=== PATIENT | male | born 1985 | race American Indian/Alaskan Native ===

== ENCOUNTER 2016-12-27 15:57 | Emergency (ER) | payer SELFPAY ==
[2016-12-27 16:48] VITALS: BP 128/80
--- NOTE | 2016-12-27 19:36 | Emergency Department Report ---
HPI - General Chief Complaint: Dental/Oral Time Seen by Provider: 12/27/16 19:03 - HPI HPI: Patient here complaining in of frequent muscle them to abdomen and fingers and back times one day. Patient also complaining of left ankle pain and left lower toothache. Denies any shortness of breath. Denies any cough. Denies any fever or chills. Denies any injury. Denies any chest pain. He states that he has no medical problems. He said this has been [place] then on and off. Patient does not have a primary care physician nor does he have a dentist. He said that the muscle spasm to his abdomen and back comes and goes and is not having it at present. Pain to tooth on the left side is 8 out of 10 and a can. No [id number] medication taken.. Denies any urinary frequency urgency or burning. Denies any loss of bowel or bladder function. Eyes any headache or dizziness. Denies any numbness or tingling to extremities. ED Past Medical Hx - Past Medical History Previous Medical History?: No - Surgical History Past Surgical History?: No - Family History Family history: no significant - Social History Smoking Status: Current Every Day Smoker Substance Use Type: None, Marijuana Other Social History: Patient is single - Medications Home Medications: Home Medications Medication Instructions Recorded Confirmed Last Taken Type Acetaminophen/Codeine [Tylenol 1 tab PO Q6H PRN #12 tab 12/27/16 Unknown Rx /Codeine # 3 tab] Amoxicillin [Amoxicillin TAB] 875 mg PO BID #20 tablet 12/27/16 Unknown Rx Cyclobenzaprine [Flexeril] 10 mg PO TID PRN #15 tablet 12/27/16 Unknown Rx ED Review of Systems ROS: Stated complaint: TOOTHACHE/MUSCLE SPASMS Other details as noted in HPI Comment: All other systems reviewed and negative Constitutional: denies: chills, fever Eyes: denies: eye discharge ENT: dental pain. denies: ear pain, throat pain, congestion Respiratory: no symptoms reported Cardiovascular: denies: chest pain, palpitations, edema, syncope Gastrointestinal: other (abdominal spasms). denies: nausea, vomiting, diarrhea , constipation, hematemesis, melena, hematochezia Genitourinary: denies: urgency, dysuria, frequency, hematuria, discharge, testicular pain, testicular mass Musculoskeletal: back pain (back spasm), arthralgia (rest ankle pain on and off) . denies: myalgia Skin: denies: rash Neurological: denies: headache, weakness, abnormal gait, vertigo Physical Exam - Physical Exam Vital Signs: Vital Signs 12/27/16 16:39 Temperature 97.8 F Pulse Rate 107 H Blood Pressure 128/80 O2 Sat by Pulse 98 Oximetry Vital Signs 12/27/16 12/27/16 16:39 19:38 Temperature 97.8 F Pulse Rate 107 H 82 Respiratory 18 Rate Blood Pressure 128/80 O2 Sat by Pulse 98 Oximetry General: This is a 31-year-old male well-nourished well-developed in no acute distress Physical Exam: Head: Normocephalic, atraumatic. No abrasions, laceration or contusion Neck: Supple, No cervical adenopathy. Full range of motion. No C-spine tenderness. No muscular tenderness Eyes: Loi sclera nonicteric, no conjunctival injection, bilateral pupils equal and reactive to light. Bilateral EOM intact. Ears: Bilateral TMs pearly underwood, bilaterally EAC without any redness swelling or drainage. Nose: Loi nasal mucosa without any erythema or congestion. No drainage. Mouth: Moist,No pharyngeal exudate and erythema. Uvula is midline and oral airways patent. Tongue normal. Positive gingival inflammation, multiple dental caries, positive tenderness around tooth #17 and 18. No erythema noted. No facial swelling. CV:S1, S2 regular rate and rhythm. Lungs: Clear to auscultate to lung kim. Normal work of breathing. Abdomen: Soft, normal bowel sounds in all quadrants. No rigidity or distention. Back: Normal inspection, full range of motion. No paraspinal or vertebral tenderness. Patient able to ambulate without any difficulties. No muscle spasm. Neurological: GCS at 15, alert and oriented 3. Speech is clear and fluid, no facial drooping. Gait is normal. Negative Romberg and negative pronator drift. No motor or sensory deficit. MSK: Full range of motion to all extremities, no joint deformity. No crepitus or erythema. No joint effusion. 5/5 movement in all extremities Extremity: No clubbing, cyanosis or edema. +2 pulses in all extremities. No neurovascular compromise. Capillary refill is less than 3 seconds. Skin: Clean dry and intact, no rash or lesions. PSYCH: Normal mood and behavior ED Course Vital Signs 08/12/17 16:39 Temperature 97.8 F Pulse Rate 107 H Blood Pressure 128/80 O2 Sat by Pulse 98 Oximetry Vital Signs 12/27/16 12/27/16 16:39 19:38 Temperature 97.8 F Pulse Rate 107 H 82 Respiratory 18 Rate Blood Pressure 128/80 O2 Sat by Pulse 98 Oximetry - Reevaluation(s) Reevaluation #1: 12/27/16 19:49 Patient had uneventful ED stay ED Medical Decision Making - Medical Decision Making ED course: Patient here with multiple complaints and found to have multiple dental caries, gingivitis and toothache. I discussed the patient that he will need to schedule appointment to have physical exam for multiple medical problems. Patient physical exam was normal except he has poor oral care and needs dental attention. Discussed the patient that I will refer him to community dentist and also [facility] which is [facility]. I also discussed with him that I'll place him on antibiotic and pain medication for his dental problem. Assessment/plan 1. Dental caries 2. Toothache 3. Gingivitis 4. Musculoskeletal pain Patient discharged home in stable condition with prescription for Flexeril, amoxicillin and Tylenol 3 and to follow-up at [facility] and [facility]. He voices understanding and discharged home in stable condition Critical care attestation.: If time is entered above; I have spent that time in minutes in the direct care of this critically ill patient, excluding procedure time. ED Disposition Clinical Impression: Toothache, Dental caries, Gingivitis, Musculoskeletal pain Disposition: - TO HOME OR SELFCARE Is pt being admited?: No Does the pt Need Aspirin: No Condition: Stable Instructions: Gingivitis (ED), Dental Caries (ED), Toothache (ED), Musculoskeletal Pain (ED) Additional Instructions: Please take medication as prescribed Follow-up at [facility] and [facility] dental clinic as discussed Please do not drive or operate heavy machinery while taking Tylenol 3 as this medication will cause drowsiness Prescriptions: Acetaminophen/Codeine [Tylenol /Codeine # 3 tab] 1 tab PO Q6H PRN #12 tab PRN Reason: Toothache Amoxicillin [Amoxicillin TAB] 875 mg PO BID #20 tablet Cyclobenzaprine [Flexeril] 10 mg PO TID PRN #15 tablet PRN Reason: Muscle Spasm Referrals: [facility] [Outside] - 2-3 Days [facility] [Outside] - 2-3 Days Forms: Work/School Release Form(ED)
== END 2016-12-27 20:01 | disposition home or self-care (01) ==
LOC: ED 15:57
DX: K05.10 Chronic gingivitis, plaque induced (principal); M25.572 Pain in left ankle and joints of left foot; F17.210 Nicotine dependence, cigarettes, uncomplicated; F12.10 Cannabis abuse, uncomplicated
CPT/HCPCS: 99282